=== PATIENT | male | born 2000 | race African-American/Black ===

== ENCOUNTER 2024-09-07 19:50 | Emergency (ER) | payer SELFPAY ==
[2024-09-07 19:54] VITALS: BP 141/87
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
[2024-09-07] MEDS: FLEXERIL 10 MG PO (22:49)
[2024-09-07] MEDS: MOTRIN 600 MG PO (22:50)
== END 2024-09-07 23:11 | disposition home or self-care (01) ==
LOC: EMR 19:50
PROVIDERS: EMERGENCY PHYSICIAN Emergency Medicine
DX: S39.012A Strain of muscle, fascia and tendon of lower back, initial encounter (principal); S40.012A Contusion of left shoulder, initial encounter; V49.50XA Passenger injured in collision with unspecified motor vehicles in traffic accident, initial encounter; R03.0 Elevated blood-pressure reading, without diagnosis of hypertension
CPT/HCPCS: 99283; 72110; 73030